=== PATIENT | male | born 1995 | race Two or more races ===

== ENCOUNTER 2024-10-07 11:57 | Emergency (ER) | payer OTHER ==
[~2024-10-07] VITALS: Ht 180.3 cm; Wt 54.4 kg
[2024-10-07] MEDS ORDERED: KEPPRA500 MG PO (12:35)
[2024-10-07] MEDS ORDERED: LAMICTAL100 M1 PO (12:35)
[2024-10-07 12:36] VITALS: BP 124/75; O2SAT 100
[2024-10-07] MEDS ORDERED: DEXAMETHASONE SODIUM PHOSPHATE 4 MG/ML VIAL IM STA (13:07)
[2024-10-07] MEDS ORDERED: DEXAMETHASONE SODIUM PHOSPHATE 4 MG/ML VIAL ONE (13:13)
[2024-10-07] MEDS ORDERED: MEDROLPACK PO (14:22)
== END 2024-10-07 14:48 | disposition home or self-care (01) ==
LOC: ER 12:28
DX: R20.0 Anesthesia of skin (principal); G56.22 Lesion of ulnar nerve, left upper limb